=== PATIENT | male | born 1960 | race Caucasian/White ===

== ENCOUNTER 2024-01-15 11:00 | Day surgery (SDC) | payer OTHER, MEDICAID, SELFPAY ==
[2024-01-08 12:25] VITALS: BMI 20.2
--- NOTE | 2024-01-15 11:06 | SUR.OPER ---
Supine on padded OR bed, head on pillow, arms secured on padded arm boards at <90 degrees abduction, legs uncrossed, safety belt at thigh, tape over blanket over lower legs.
[2024-01-15 11:23] VITALS: BP 178/89; PULSE 98; RESP 16; TEMP 36.8; O2SAT 100; BMI 20.2
--- NOTE | 2024-01-15 11:48 | PM.PREOP ---
Pre-operative Note COVID-19 COVID-19 status: Not tested Interval Note History & Physical reviewed/Exam performed by Physician: Yes Changes to H&P: No ASA Class (for procedural sedation): III
[2024-01-15] MEDS: CEFAZOLIN 2 GM/100 ML PREMIX 100 ML IV (12:01)
[2024-01-15] MEDS: BUPIVACAINE 0.5% (PF) 30 ML, EPINEPHrine 0.15 MG INJ (12:05)
[2024-01-15] MEDS: ACETAMINOPHEN IV 1,000 MG/100 ML VIAL 400 MG IV (12:07)
--- NOTE | 2024-01-15 12:41 | PM.OP.1 ---
Operative Date/Time/Diagnoses Date of procedure: 01/15/24 Time of procedure: 12:41 Pre-op diagnosis: Left inguinal hernia Post-op diagnosis: same Procedure & Clinicians Procedure: Open left inguinal hernia repair with mesh Same procedure as scheduled: Yes Surgeon: Elder Smart Sample Checker: Jesús Peterson Anesthesia Type: General Operative Notes Procedure in detail: Preoperative antibiotic was administered. The patient was brought to the operating room and placed on the table in supine position general anesthesia was induced. The left groin was prepped and draped in the normal fashion and a time-out was performed. Roughly 10 mL of local anesthetic were injected into the skin and subcutaneous adipose tissue over the left groin. A 5 cm incision was made over the left inguinal canal. Dissection was carried down through the subcutaneous adipose tissue. A bridging vein was cauterized. We exposed the external oblique aponeurosis in the direction of the fibers. Additional local was injected deep to the aponeurosis. A 15 blade scalpel was used to case the external oblique aponeurosis. Metzenbaum scissors were used to carefully open the aponeurosis in the direction of the fibers taking care not to injure the underlying ilioinguinal nerve. We completely exposed the inguinal canal. The cord was dissected free from the inguinal ligament and floor of the inguinal canal and the external oblique aponeurosis was dissected off of the internal oblique taking care not to injure the hypogastric nerve. We encircled the cord with a [place] drain for retraction. Was an indirect defect with a rather long hernia sac. The hernia sac was dissected off the cord structures and reduced into the abdomen. We placed a polypropylene mesh over the inguinal canal floor. The mesh was secured with multiple interrupted 3-0 Prolene sutures to the pubic tubercle and shelving edge of the inguinal ligament as well as to the conjoint tendon medially. We overlapped the tails to recreate an internal ring and secured the medial tail to the inguinal ligament with additional sutures. We injected some more local into the fatty tissue in the inguinal canal and cord. Finally, we removed the [place] drain and closed the external oblique fascia with a running 3-0 Vicryl suture. Skin was closed with interrupted 3-0 Vicryl dermal sutures and a running 4 Monocryl subcuticular stitch. EBL 5 mL The patient was awakened and brought to recovery room. Jesús ALLEN provided assistance with exposure, retraction and closure of incisions. Post-operative Condition: stable Disposition: PACU
[2024-01-15 12:55] VITALS: BP 150/73; PULSE 87; RESP 36; TEMP 37.4; O2SAT 100
[2024-01-15 13:00] VITALS: BP 123/52; PULSE 84; RESP 18; O2SAT 100
[2024-01-15 13:05] VITALS: BP 163/81; PULSE 89; RESP 18; O2SAT 100
[2024-01-15 13:11] VITALS: BP 147/79; PULSE 85; RESP 18; O2SAT 100
[2024-01-15] MEDS: OXYCODONE IR 5 MG TABLET PO (14:40)
[2024-01-15 14:42] VITALS: BP 146/80; PULSE 91; RESP 18; TEMP 36.6; O2SAT 96
[2024-01-15] MEDS: LACTATED RINGERS 1,000 ML 42 ML IV (14:44)
== END 2024-01-15 14:45 | disposition home or self-care (01) ==
PROVIDERS: PCP Family Medicine; Referring Provider Surgery; Visit Provider Surgery
PROC: (CPT 49505; principal; 2024-01-15 11:45)
DX: K40.90 Unilateral inguinal hernia, without obstruction or gangrene, not specified as recurrent (principal)
CPT/HCPCS: 49505; J0136; J0171; J0690; J1100; J1170; J1885; J2405; J2704